=== PATIENT | male | born 1965 | race Two or more races ===

== ENCOUNTER 2021-05-28 06:43 | Day surgery (SDC) | payer OTHER | END 2021-05-28 13:05 | disposition home or self-care (01) | LOC: AMB-ENDOS 06:43 | PROVIDERS: ATTEND Surgery | DX: D12.2 Benign neoplasm of ascending colon (principal); D12.3 Benign neoplasm of transverse colon; E88.2 Lipomatosis, not elsewhere classified; Z83.71 Family history of colonic polyps ==

== ENCOUNTER 2024-12-23 10:30 | Day surgery (SDC) | payer OTHER ==
[2024-12-23] MEDS ORDERED: MIDAZOLAM HCL 2 MG/2 ML VIAL IV ONE (12:00)
[2024-12-23] MEDS ORDERED: fentaNYL CITRATE 50 MCG/ML AMPUL IV PUSH ONE (12:00)
[2024-12-23] MEDS ORDERED: ENALAPRILAT DIHYDRATE 1.25 MG/ML VIAL IV ONE (13:15)
== END 2024-12-23 12:50 | disposition home or self-care (01) ==
LOC: AMB-ENDOS 10:30
PROVIDERS: ATTEND Surgery
DX: D12.2 Benign neoplasm of ascending colon (principal); K63.5 Polyp of colon; K57.30 Diverticulosis of large intestine without perforation or abscess without bleeding